=== PATIENT | male | born 1940 | race African-American/Black ===

== ENCOUNTER 2017-03-22 11:28 | Inpatient (IN) | payer MEDICARE, MEDICAID ==
[~2017-03-22] VITALS: Ht 172.7 cm; Wt 57.6 kg
[2017-03-22 11:30] VITALS: BP 186/86
[2017-03-22] MEDS ORDERED: ATORVASTATIN CA20 MG ORAL (11:45)
[2017-03-22] MEDS ORDERED: HYDRALAZINE HC100 MG ORAL (11:45)
[2017-03-22] MEDS ORDERED: CLONIDINE0.1 MG GT (11:45)
[2017-03-22] MEDS ORDERED: Morphine Sulfate 2mg/ml Inj IVP ONE (11:45)
[2017-03-22] MEDS ORDERED: ZOLPIDEM TARTRAT5 MG ORAL (11:45)
[2017-03-22] MEDS ORDERED: NORCO 5-325 TA1 EAC1 ORAL (11:45)
[2017-03-22] MEDS ORDERED: DOCUSATE SODIU250 MG ORAL (11:45)
[2017-03-22] MEDS ORDERED: ASPIRIN81 M3 PO (11:45)
[2017-03-22] MEDS ORDERED: ACETAMINOPHEN325 M1 ORAL (11:45)
[2017-03-22] MEDS ORDERED: DIOVAN80 MG ORAL (11:45)
[2017-03-22] MEDS ORDERED: DILTIAZEM HCL30 MG PO (11:45)
[2017-03-22] MEDS ORDERED: VITAMIN D250000 UNI1 ORAL (11:45)
[2017-03-22 12:00] LABS: BASOPHILS % (AUTO) 1.5 % (0.0-2.0); EOSINOPHILS % (AUTO) 3.3 % (0.0-3.0); LYMPHOCYTES % (AUTO) 27.7 % (20.0-45.0); MEAN CORPUSCULAR HEMOGLOBIN 28.3 PG (27.0-31.0); MEAN CORPUSCULAR HGB CONC 32.5 G/DL (32.0-36.0); MEAN CORPUSCULAR VOLUME 87 FL (80-99); MEAN PLATELET VOLUME 9.1 FL (6.5-10.1); NEUTROPHILS % (AUTO) 61.4 % (45.0-75.0); PLATELET COUNT 200 K/UL (150-450); RED BLOOD COUNT 4.93 M/UL (4.70-6.10); WHITE BLOOD COUNT 8.8 K/UL (4.8-10.8)
[2017-03-22] MEDS ORDERED: Tubing IV Cassette IV ONE (12:02)
[2017-03-22 12:18] LABS: ALANINE AMINOTRANSFERASE 9 U/L (3-41); ALBUMIN/GLOBULIN RATIO 1.2 (1.0-2.7); ANION GAP 18 (5-15); ASPARTATE AMINO TRANSFERASE 20 U/L (5-40); CALCIUM 9.1 mg/dL (8.6-10.2); CARBON DIOXIDE 23 mEQ/L (20-30); CHLORIDE 100 mEQ/L (98-107); CREATININE 1.4 mg/dL (0.7-1.2); HEMOLYSIS 6; POTASSIUM 3.5 mEQ/L (3.4-4.9); SODIUM 141 mEQ/L (135-145); TOTAL PROTEIN 7.7 g/dL (6.6-8.7)
[2017-03-22 12:38] LABS: TROPONIN I < 0.30 ng/mL (<=0.30)
[2017-03-22 12:47] LABS: CKMB 2.8 ng/mL (< 6.7)
--- NOTE | 2017-03-22 13:42 | Emergency Room Report ---
History of Present Illness General Chief Complaint: Chest Pain Source: Medical Record Present Illness HPI 76-year-old M presents to ED any of chest pain. States chest pain started approximately 2 hours ago while he was exercising at the [facility]. Patient states pain was sharp, 7/10, left-sided radiating on the left arm. Patient was given nitroglycerin x3 with aspirin without relief. Patient denies shortness of breath. Denies fevers or chills. History of pacemaker. No other aggravating relieving factors. Denies any other associated symptoms Allergies: Coded Allergies: No Known Allergies (Unverified , 03/22/17) Patient History Past Medical History: HTN Past Surgical History: none Pertinent Family History: none Social History: Denies: alcohol use, drug use, smoking Immunizations: UTD Reviewed Nursing Documentation: PMH: Agreed, PSxH: Agreed Nursing Documentation-PMH Hx Hypertension: Yes Review of Systems All Other Systems: negative except mentioned in HPI Physical Exam Vital Signs Date Time Temp Pulse Resp B/P Pulse Ox O2 Delivery O2 Flow Rate FiO2 03/22/17 11:17 82 18 212/110 99 Room Air 03/22/17 11:45 97.6 Sp02 EP Interpretation: reviewed, normal General Appearance: no apparent distress, alert, GCS 15, non-toxic Head: normocephalic, atraumatic Eyes: bilateral eye PERRL, bilateral eye normal inspection ENT: hearing grossly normal, normal pharynx, no angioedema, normal voice Neck: full range of motion, supple/symm/no masses Respiratory: chest non-tender, lungs clear, normal breath sounds, speaking full sentences Cardiovascular #1: regular rate, rhythm, no edema Cardiovascular #2: 2+ carotid (R), 2+ carotid (L), 2+ radial (R), 2+ radial (L) , 2+ dorsalis pedis (R), 2+ dorsalis pedis (L) Gastrointestinal: normal bowel sounds, non tender, soft, non-distended, no guarding, no rebound Rectal: deferred Genitourinary: normal inspection, no CVA tenderness Musculoskeletal: back normal, gait/station normal, normal range of motion, non- tender, calf tenderness Neurologic: alert, oriented x3, responsive, motor strength/tone normal, sensory intact, speech normal Psychiatric: judgement/insight normal, memory normal, mood/affect normal, no suicidal/homicidal ideation Reflexes: 3+ bicep (R), 3+ bicep (L), 3+ tricep (R), 3+ tricep (L), 3+ knee (R) , 3+ knee (L) Skin: normal color, no rash, warm/dry, well hydrated Lymphatic: no adenopathy Medical Decision Making Diagnostic Impression: Primary Impression: ACS (acute coronary syndrome) Additional Impression: Substance abuse ER Course Hospital Course 76-year-old male presents ED complaining of left-sided chest pain, unrelieved by NTG Differential diagnoses include: NV/unstable angina, contusion, muscle strain, PTX, rib fracture Clinical course Patient placed on stretcher. on electronic device monitor. After initial history and physical I ordered labs, EKG, chest x-ray, morphine labs reviewed- no leukocytosis, hb/hct stable, electrolytes ok, trop negative, Utox + multiple substances EKG - LVH, twave inversions in lateral leads, interpreted by me Chest x-ray- pacemaker, otherwise unremarkable Case discussed with Dr. Salinas and he agreed to accept the patient to his service for further care and support I. I feel this is a highly complex case requiring extensive working including EKG/Rhythm strip, Xray/CT/US, Blood/urine lab work, repeat exams while in ED, and administration of strong opiates/narcotics for pain control, admission to hospital or close patient follow up. dagnosis - ACS, substance abuse admitted to telemetry in serious condition Labs Test 03/22/17 11:30 03/22/17 12:15 White Blood Count 8.8 K/UL (4.8-10.8) Red Blood Count 4.93 M/UL (4.70-6.10) Hemoglobin 14.0 G/DL (14.2-18.0) Hematocrit 43.0 % (42.0-52.0) Mean Corpuscular Volume 87 FL (80-99) Mean Corpuscular Hemoglobin 28.3 PG (27.0-31.0) Mean Corpuscular Hemoglobin Concent 32.5 G/DL (32.0-36.0) Red Cell Distribution Width 12.0 % (11.6-14.8) Platelet Count 200 K/UL (150-450) Mean Platelet Volume 9.1 FL (6.5-10.1) Neutrophils (%) (Auto) 61.4 % (45.0-75.0) Lymphocytes (%) (Auto) 27.7 % (20.0-45.0) Monocytes (%) (Auto) 6.0 % (1.0-10.0) Eosinophils (%) (Auto) 3.3 % (0.0-3.0) Basophils (%) (Auto) 1.5 % (0.0-2.0) Sodium Level 141 mEQ/L (135-145) Potassium Level 3.5 mEQ/L (3.4-4.9) Chloride Level 100 mEQ/L (98-107) Carbon Dioxide Level 23 mEQ/L (20-30) Anion Gap 18 (5-15) Blood Urea Nitrogen 28 mg/dL (7-23) Creatinine 1.4 mg/dL (0.7-1.2) Estimat Glomerular Filtration Rate mL/min (>60) Glucose Level 165 mg/dL (74-106) Calcium Level 9.1 mg/dL (8.6-10.2) Total Bilirubin 0.3 mg/dL (0.0-1.2) Aspartate Amino Transf (AST/SGOT) 20 U/L (5-40) Alanine Aminotransferase (ALT/SGPT) 9 U/L (3-41) Alkaline Phosphatase 83 U/L (40-129) Total Creatine Kinase 91 U/L (38-174) Creatine Kinase MB 2.8 ng/mL (< 6.7) Creatine Kinase MB Relative Index 3.0 Troponin I < 0.30 ng/mL (<=0.30) Pro-B-Type Natriuretic Peptide 332 pg/mL (0-450) Total Protein 7.7 g/dL (6.6-8.7) Albumin 4.3 g/dL (3.5-5.2) Globulin 3.4 g/dL Albumin/Globulin Ratio 1.2 (1.0-2.7) Urine Opiates Screen Positive (NEGATIVE) Urine Barbiturates Screen Positive (NEGATIVE) Phencyclidine (PCP) Screen Negative (NEGATIVE) Urine Amphetamines Screen Negative (NEGATIVE) Urine Benzodiazepines Screen Negative (NEGATIVE) Urine Cocaine Screen Negative (NEGATIVE) Urine Marijuana (THC) Screen Positive (NEGATIVE) EKG Diagnostic Results Rate: normal Rhythm: NSR ST Segments: other - twave inversions in lateral leads ASA given to the pt in ED: No - given by ems Rhythm Strip Diag. Results EP Interpretation: yes Rhythm: NSR, no PVC's, no ectopy Chest X-Ray Diagnostic Results Chest X-Ray Ordered: Yes # of Views/Limited/Complete: 1 View Interpretation: no consolidation, no effusion, no pneumothorax, no acute cardiopulmonary disease, other - pacemaker Indication: Chest Pain Impression: No acute disease Date Electronically Signed: Mar 22, 2017 Time Electronically Signed: 14:16 Interpreting ER Physician: Jun Ahn MD Last Vital Signs Date Time Temp Pulse Resp B/P Pulse Ox O2 Delivery O2 Flow Rate FiO2 03/22/17 12:35 97.6 03/22/17 11:30 80 18 186/86 99 Room Air Status: improved Disposition: ADMITTED INPATIENT Condition: Serious Referrals: NON PHYSICIAN (PCP) JUN AHN M.D. Mar 22, 2017 13:42
[2017-03-22 14:00] VITALS: BP 200/78
--- NOTE | 2017-03-22 14:46 | Diagnostic Imaging Report ---
Indications: Chest pain Technique: Portable AP chest Findings: Comparison: None Cardiac silhouette mildly enlarged. Pulmonary vasculature within normal limits. Lungs and pleura are grossly clear. Thoracic aorta mildly calcified and elongated. Sternal wires. Left chest wall pacemaker. IMPRESSION: No evidence of acute cardiopulmonary disease Cardiomegaly with pacemaker, evidence of previous open heart surgery Aortosclerosis and probable chronic hypertensive change
[2017-03-22 16:00] VITALS: BP 168/77
[2017-03-22] MEDS ORDERED: Miralax 17gm pkt ORAL PRN (17:00)
[2017-03-22] MEDS ORDERED: DuoNeb 0.5-3(2.5)mg/3ml neb HHN PRN (17:00)
[2017-03-22] MEDS ORDERED: Nitroglycerin Subl 0.4mg tab (Bottle Of 25) SL PRN (17:00)
[2017-03-22] MEDS ORDERED: Diltiazem 25mg/5ml IV PRN (17:00)
[2017-03-22 18:00] VITALS: BP 150/58
[2017-03-22 18:24] LABS: TROPONIN I < 0.30 ng/mL (<=0.30)
[2017-03-22] MEDS: Ketorolac 30mg Inj IV PRN (18:26)
[2017-03-22 19:45] VITALS: BP 155/82
--- NOTE | 2017-03-22 20:26 | Cardiology Progress Note ---
Assessment/Plan Assessment/Plan The patient is seen and examined, full consult note is dictated. Objective Last 24 Hour Vital Signs Date Time Temp Pulse Resp B/P Pulse Ox O2 Delivery O2 Flow Rate FiO2 03/22/17 19:31 97.6 63 16 150/58 98 Room Air 03/22/17 19:00 97.6 03/22/17 18:00 63 16 150/58 98 Room Air 03/22/17 16:00 60 16 168/77 97 Room Air 03/22/17 15:04 175/79 03/22/17 15:02 62 175/79 03/22/17 14:00 60 15 200/78 97 Room Air 03/22/17 12:35 97.6 03/22/17 11:45 97.6 03/22/17 11:30 80 18 186/86 99 Room Air 03/22/17 11:30 82 18 Room Air 03/22/17 11:17 82 18 212/110 99 Room Air Laboratory Tests Test 03/22/17 11:30 03/22/17 12:15 03/22/17 17:50 White Blood Count 8.8 K/UL (4.8-10.8) Red Blood Count 4.93 M/UL (4.70-6.10) Hemoglobin 14.0 G/DL (14.2-18.0) L Hematocrit 43.0 % (42.0-52.0) Mean Corpuscular Volume 87 FL (80-99) Mean Corpuscular Hemoglobin 28.3 PG (27.0-31.0) Mean Corpuscular Hemoglobin Concent 32.5 G/DL (32.0-36.0) Red Cell Distribution Width 12.0 % (11.6-14.8) Platelet Count 200 K/UL (150-450) Mean Platelet Volume 9.1 FL (6.5-10.1) Neutrophils (%) (Auto) 61.4 % (45.0-75.0) Lymphocytes (%) (Auto) 27.7 % (20.0-45.0) Monocytes (%) (Auto) 6.0 % (1.0-10.0) Eosinophils (%) (Auto) 3.3 % (0.0-3.0) H Basophils (%) (Auto) 1.5 % (0.0-2.0) Sodium Level 141 mEQ/L (135-145) Potassium Level 3.5 mEQ/L (3.4-4.9) Chloride Level 100 mEQ/L (98-107) Carbon Dioxide Level 23 mEQ/L (20-30) Anion Gap 18 (5-15) H Blood Urea Nitrogen 28 mg/dL (7-23) H Creatinine 1.4 mg/dL (0.7-1.2) H Estimat Glomerular Filtration Rate mL/min (>60) Glucose Level 165 mg/dL (74-106) H Calcium Level 9.1 mg/dL (8.6-10.2) Total Bilirubin 0.3 mg/dL (0.0-1.2) Aspartate Amino Transf (AST/SGOT) 20 U/L (5-40) Alanine Aminotransferase (ALT/SGPT) 9 U/L (3-41) Alkaline Phosphatase 83 U/L (40-129) Total Creatine Kinase 91 U/L (38-174) Creatine Kinase MB 2.8 ng/mL (< 6.7) Creatine Kinase MB Relative Index 3.0 Troponin I < 0.30 ng/mL (<=0.30) < 0.30 ng/mL (<=0.30) Pro-B-Type Natriuretic Peptide 332 pg/mL (0-450) Total Protein 7.7 g/dL (6.6-8.7) Albumin 4.3 g/dL (3.5-5.2) Globulin 3.4 g/dL Albumin/Globulin Ratio 1.2 (1.0-2.7) Urine Opiates Screen Positive (NEGATIVE) H Urine Barbiturates Screen Positive (NEGATIVE) H Phencyclidine (PCP) Screen Negative (NEGATIVE) Urine Amphetamines Screen Negative (NEGATIVE) Urine Benzodiazepines Screen Negative (NEGATIVE) Urine Cocaine Screen Negative (NEGATIVE) Urine Marijuana (THC) Screen Positive (NEGATIVE) H LUIS SANTOS Mar 22, 2017 20:26
[2017-03-22] MEDS ORDERED: Triamterene/Hctz 37.5/25 cap ORAL SCH (20:45)
[2017-03-22] MEDS: Atorvastatin 20mg tab ORAL SCH (20:54)
[2017-03-22] MEDS: Morphine Sulfate 2mg/ml Inj IVP PRN (20:56)
[2017-03-22] MEDS: Heparin 5000 units/ml inj SUBQ SCH (20:56)
[2017-03-22] MEDS: Triamterene/Hctz 37.5/25 cap ORAL SCH (21:38)
--- NOTE | 2017-03-22 22:12 | History and Physical ---
History of Present Illness General Date patient seen: Mar 22, 2017 Reason for Hospitalization: Chest Pain Present Illness HPI 76-year-old male with hx of CAD, pacemaker, intermediate resident presents to ED with CC of chest pain. States chest pain started approximately 2 hours ago while he was exercising at the [facility] facility. The pain was sharp, 7/ 10, left-sided radiating on the left arm. Patient was given nitroglycerin x3 with aspirin without relief. Patient denies shortness of breath. Denies fevers or chills. No other aggravating relieving factors. His BP was elevated in ER, he is admitted to [facility] for further evaluation. Allergies: Coded Allergies: No Known Allergies (Unverified , 03/22/17) Medication History Scheduled Aspirin* (Aspirin*), 81 MG ORAL DAILY, (Reported) Atorvastatin Calcium* (Atorvastatin Calcium*), 20 MG ORAL BEDTIME, (Reported) Docusate Sodium* (Docusate Sodium*), 250 MG ORAL TWICE A DAY, (Reported) Ergocalciferol (Vitamin D2)* (Vitamin D*), 50,000 UNIT ORAL ONCE A WEEK, ( Reported) Hydralazine Hcl* (Hydralazine Hcl*), 100 MG ORAL EVERY 8 HOURS, (Reported) Valsartan (Diovan), 1 TAB ORAL BID, (Reported) [Diltiazem Hcl], 30 MG PO DAILY, (Reported) Scheduled PRN Clonidine Hcl (Clonidine Hcl), 0.1 MG PO EVERY 8 HOURS PRN for For High Blood Pressure, (Reported) Hydrocodone Bit/Acetaminophen 5-325* (Jber 5-325*), 1 TAB ORAL Q6H PRN for For Pain, (Reported) Zolpidem Tartrate* (Zolpidem Tartrate*), 5 MG ORAL BEDTIME PRN for Insomnia, ( Reported) [Acetaminophen*], 650 MG PO EVERY 4 HOURS PRN for For Pain, (Reported) Discontinued Medications Acetaminophen* (Acetaminophen 325MG Tablet*), 325 MG ORAL Q6H PRN for For Pain, (Reported) Discontinued Reason: Prescription changed Diltiazem Hcl (Diltiazem Hcl), 30 MG PO, (Reported) Discontinued Reason: Prescription changed Patient History Healthcare decision maker Resuscitation status Advanced Directive on File Past Medical/Surgical History Past Medical/Surgical History: (1) Pacemaker (2) senior living resident Review of Systems Cardiovascular: Reports: chest pain All Other Systems: negative except mentioned in HPI Physical Exam General Appearance: cachetic Lines, tubes and drains: peripheral HEENT: normocephalic, atraumatic Neck: non-tender, normal alignment Respiratory/Chest: chest wall non-tender, lungs clear Cardiovascular/Chest: normal peripheral pulses, normal rate Abdomen: normal bowel sounds, non tender Genitourinary/Rectal: normal genital exam Extremities: normal range of motion Last 24 Hour Vital Signs Date Time Temp Pulse Resp B/P Pulse Ox O2 Delivery O2 Flow Rate FiO2 03/22/17 21:38 67 159/93 03/22/17 21:38 159/93 03/22/17 19:31 97.6 63 16 150/58 98 Room Air 03/22/17 19:00 97.6 03/22/17 18:00 63 16 150/58 98 Room Air 03/22/17 16:00 60 16 168/77 97 Room Air 03/22/17 15:04 175/79 03/22/17 15:02 62 175/79 03/22/17 14:00 60 15 200/78 97 Room Air 03/22/17 12:35 97.6 03/22/17 11:45 97.6 03/22/17 11:30 80 18 186/86 99 Room Air 03/22/17 11:30 82 18 Room Air 03/22/17 11:17 82 18 212/110 99 Room Air Laboratory Tests Test 03/22/17 11:30 03/22/17 12:15 03/22/17 17:50 White Blood Count 8.8 K/UL (4.8-10.8) Red Blood Count 4.93 M/UL (4.70-6.10) Hemoglobin 14.0 G/DL (14.2-18.0) L Hematocrit 43.0 % (42.0-52.0) Mean Corpuscular Volume 87 FL (80-99) Mean Corpuscular Hemoglobin 28.3 PG (27.0-31.0) Mean Corpuscular Hemoglobin Concent 32.5 G/DL (32.0-36.0) Red Cell Distribution Width 12.0 % (11.6-14.8) Platelet Count 200 K/UL (150-450) Mean Platelet Volume 9.1 FL (6.5-10.1) Neutrophils (%) (Auto) 61.4 % (45.0-75.0) Lymphocytes (%) (Auto) 27.7 % (20.0-45.0) Monocytes (%) (Auto) 6.0 % (1.0-10.0) Eosinophils (%) (Auto) 3.3 % (0.0-3.0) H Basophils (%) (Auto) 1.5 % (0.0-2.0) Sodium Level 141 mEQ/L (135-145) Potassium Level 3.5 mEQ/L (3.4-4.9) Chloride Level 100 mEQ/L (98-107) Carbon Dioxide Level 23 mEQ/L (20-30) Anion Gap 18 (5-15) H Blood Urea Nitrogen 28 mg/dL (7-23) H Creatinine 1.4 mg/dL (0.7-1.2) H Estimat Glomerular Filtration Rate mL/min (>60) Glucose Level 165 mg/dL (74-106) H Calcium Level 9.1 mg/dL (8.6-10.2) Total Bilirubin 0.3 mg/dL (0.0-1.2) Aspartate Amino Transf (AST/SGOT) 20 U/L (5-40) Alanine Aminotransferase (ALT/SGPT) 9 U/L (3-41) Alkaline Phosphatase 83 U/L (40-129) Total Creatine Kinase 91 U/L (38-174) Creatine Kinase MB 2.8 ng/mL (< 6.7) Creatine Kinase MB Relative Index 3.0 Troponin I < 0.30 ng/mL (<=0.30) < 0.30 ng/mL (<=0.30) Pro-B-Type Natriuretic Peptide 332 pg/mL (0-450) Total Protein 7.7 g/dL (6.6-8.7) Albumin 4.3 g/dL (3.5-5.2) Globulin 3.4 g/dL Albumin/Globulin Ratio 1.2 (1.0-2.7) Urine Opiates Screen Positive (NEGATIVE) H Urine Barbiturates Screen Positive (NEGATIVE) H Phencyclidine (PCP) Screen Negative (NEGATIVE) Urine Amphetamines Screen Negative (NEGATIVE) Urine Benzodiazepines Screen Negative (NEGATIVE) Urine Cocaine Screen Negative (NEGATIVE) Urine Marijuana (THC) Screen Positive (NEGATIVE) H Height (Feet): 5 Height (Inches): 9.00 Weight (Pounds): 150 Medications Current Medications Medications (Trade) Dose Ordered Sig/Manjeet Route PRN Reason Start Time Stop Time Status Last Admin Dose Admin Acetaminophen (Tylenol) 650 mg Q4H PRN ORAL FEVER 03/22/17 17:00 04/21/17 16:59 Albuterol/ Ipratropium (DuoNeb 0.5-3(2.5)mg/3ml) 3 ml EVERY 4 HOURS PRN HHN Shortness of Breath 03/22/17 17:00 03/27/17 16:59 Aspirin (ASA) 162 mg DAILY ORAL 03/23/17 09:00 04/22/17 08:59 Atorvastatin Calcium (Lipitor) 20 mg BEDTIME ORAL 03/22/17 21:00 04/21/17 20:59 03/22/17 20:54 Clonidine HCl (Catapres) 0.1 mg EVERY 8 HOURS GT 03/22/17 15:00 04/21/17 14:59 03/22/17 21:38 Diltiazem HCl (Cardizem) 10 mg EVERY HOUR PRN IV heart rate more than 120, 03/22/17 17:00 04/21/17 16:59 Diltiazem HCl (Cardizem) 30 mg EVERY 8 HOURS ORAL 03/22/17 15:00 04/21/17 14:59 03/22/17 21:38 Enalaprilat (Vasotec) 2.5 mg EVERY 6 HOURS PRN IV sbp more than 160 03/22/17 17:00 04/21/17 16:59 Heparin Sodium (Porcine) (Heparin 5000 units/ml) 5,000 units EVERY 12 HOURS SUBQ 03/22/17 21:00 04/21/17 20:59 03/22/17 20:56 Ketorolac Tromethamine (Toradol 30mg) 30 mg Q6HR PRN IV moderate pain ( 4-6) 03/22/17 17:00 03/27/17 16:59 03/22/17 18:26 Morphine Sulfate (Morphine Sulfate) 2 mg EVERY 4 HOURS PRN IVP severe Pain (Pain Scale 7-10) 03/22/17 17:00 03/29/17 16:59 03/22/17 20:56 Nitroglycerin (Ntg) 0.4 mg Q5M PRN SL Prn Chest Pain 03/22/17 17:00 04/21/17 16:59 Ondansetron HCl (Zofran) 4 mg Q6H PRN IVP Nausea & Vomiting 03/22/17 17:00 04/21/17 16:59 Pantoprazole (Protonix) 40 mg DAILY ORAL 03/23/17 09:00 04/22/17 08:59 Polyethylene Glycol (Miralax) 17 gm DAILYPRN PRN ORAL Constipation 03/22/17 17:00 04/21/17 16:59 Temazepam (Restoril) 15 mg HSPRN PRN ORAL Insomnia 03/22/17 17:00 03/29/17 16:59 Triamterene/HCTZ (Dyazide) 1 cap DAILY ORAL 03/22/17 21:15 04/21/17 21:14 03/22/17 21:38 Assessment/Plan Problem List: (1) Costochondritis ICD Codes: M94.0 - Chondrocostal junction syndrome [Tietze] SNOMED: 23070809 (2) ACS (acute coronary syndrome) ICD Codes: I24.9 - Acute ischemic heart disease, unspecified SNOMED: 127144349 (3) Pacemaker ICD Codes: Z95.0 - Presence of cardiac pacemaker SNOMED: 364547619, 579240860 (4) Substance abuse ICD Codes: F19.10 - Other psychoactive substance abuse, uncomplicated SNOMED: 88837967 (5) senior living resident ICD Codes: Z59.3 - Problems related to living in residential institution SNOMED: 461358437 Assessment/Plan serial ekg, troponin cardio evaluation symptomatic treatment monitor bp renal w/u dvt prophylaxis echocardiogram pt/ot SEKOU HERNANDEZ Mar 22, 2017 22:12
[2017-03-22] MEDS ORDERED: NORCO 5-325 TA1 EACH ORAL (22:24)
[2017-03-22] MEDS ORDERED: DIOVAN HCT 80MG1 TAB ORAL (22:24)
[2017-03-22] MEDS ORDERED: ASPIRIN81 MG ORAL (22:24)
[2017-03-22] MEDS ORDERED: Diltiazem Hcl PO (22:24)
[2017-03-22] MEDS ORDERED: Acetaminophen PO (22:24)
[2017-03-22] MEDS ORDERED: CLONIDINE HCL0.1 MG PO (22:24)
--- NOTE | 2017-03-22 23:00 | Consultation ---
DATE OF CONSULTATION: 03/22/2017 CARDIOLOGY CONSULTATION REFERRING PHYSICIAN: Radha Salinas M.D. REASON FOR CONSULTATION: Management of chest pain. HISTORY OF PRESENT ILLNESS: The patient is a very unfortunate 76-year-old black gentleman who is transferred from residential [facility] for evaluation of chest pain. Apparently, the patient's chest pain occurred when he was exercising at residential facility. The pain is sharp, extremely reproducible and tender at the site of the previously implanted pacemaker, intensity is 10/10 and nonradiating, and took three doses of nitroglycerin with no relief. The patient denies any associated shortness of breath, nausea vomiting, or diaphoresis. PAST MEDICAL HISTORY: Hypertension, sick sinus syndrome, status post permanent pacemaker implantation. PAST SURGICAL HISTORY: Dual chamber pacemaker implantation. MEDICATIONS: List of medication in the nursing facility includes aspirin 81 mg p.o. daily, acetaminophen 325 mg q.6 h. p.r.n., atorvastatin 10 mg p.o. at bedtime, clonidine 0.1 mg G-tube daily, diltiazem 30 mg p.o. daily, Colace 250 mg twice daily, vitamin D5 50,000 once a week, hydralazine 100 mg p.o. q.8 h., [place] 5/325 mg one tablet q.4 h. p.r.n. pain, Diovan 80 mg p.o. daily, and zolpidem 5 mg p.o. at bedtime. SOCIAL HISTORY: Denies any tobacco, alcohol, or illicit drug use besides marijuana. FAMILY HISTORY: No premature coronary artery disease in first-degree relatives. REVIEW OF SYSTEMS: HEENT: Denies any headache, diplopia, or blurred vision. Constitutional: Denies any fever, chills, night sweats, or weight loss. Cardiovascular: Chest pain as mentioned above. No shortness of breath. No PND, orthopnea, or leg swelling. Pulmonary: Denies any cough or hemoptysis. Gastrointestinal: Denies any nausea, vomiting, diarrhea, constipation, abdominal pain, or GI bleed. Genitourinary: Denies any hematuria, dysuria, or incontinence. Neurology: Denies any motor dysfunction, sensory deficit, or altered speech. PHYSICAL EXAMINATION: GENERAL: The patient is a very unfortunate 76-year-old gentleman, who presented to this with complaints of chest pain, in no apparent respiratory distress except the fact that he is agonized due to left-sided chest pain. VITAL SIGNS: Blood pressure was 212/100 mm Hg, respirations 18, pulse of 82, O2 saturation 99% on room air, and temperature 97.6 degrees Fahrenheit. HEENT: Atraumatic and normocephalic. Anicteric. Pupils are equal, round, and reactive to light and accommodation. Extraocular muscles intact. NECK: JVP less than 5 centimeter. No carotid bruits. Carotid upstrokes 2+ bilaterally. CARDIOVASCULAR: Normal S1 and S2. Regular rate and rhythm. No murmurs, gallops, or rubs. There is exquisite tenderness over the pacemaker pocket. LUNGS: Clear to auscultation bilaterally. ABDOMEN: Soft, nontender, and nondistended. No hepatosplenomegaly. Positive bowel sounds. EXTREMITIES: No evidence of edema, clubbing, or cyanosis. LABORATORY AND DIAGNOSTIC DATA: Urine toxicology screen shows positive opiates, barbiturates and marijuana. Chemistry shows sodium 141, potassium is 3.5, chloride 100, bicarbonate 23, BUN of 28. Creatinine 1.4, and glucose is 165. Calcium is 9.1. Troponin I x2 negative. ProBNP was 332. WBC is 8.8, hemoglobin 14.0, hematocrit 43.0 and platelet count is 200,000. Chest x-ray showed no evidence of acute cardiopulmonary disease, cardiomegaly with dual chamber pacemaker and previous mediastinotomy. ASSESSMENT AND PLAN: The patient is a very pleasant 76-year-old gentleman, who presents to the hospital for further evaluation and management of chest pain. Cardiology consultation was made at request Dr. Salinas. 1. Accelerated hypertension with blood systolic blood pressure of 212 mm Hg. The patient was on blood pressure medication in the nursing facility. We will continue the same regimen. At this time, blood pressure is elevated at 150/58. The patient will benefit a combination of diuretic and calcium channel-blockers. A 2D echocardiography will be done to assess left ventricular systolic and diastolic function. 2. Noncardiac chest pain. The patient has exquisite tenderness over the chest pacemaker and no further cardiac intervention is necessary. The patient will require nonsteroidal anti-inflammatory therapy for pain management. 3. Chronic kidney disease, most likely hypertensive. Creatinine 1.4. 4. Polysubstance abuse including marijuana use. I would like to thank, Dr. Salinas, for allowing me to participate in the care of this patient. Deshawn Arshad M.D. DR: MISTY JOB#: [id number] CC:
[2017-03-22 23:57] VITALS: BP 143/76
[2017-03-23] MEDS: Morphine Sulfate 2mg/ml Inj IVP PRN ×4 (00:58→20:04)
[2017-03-23 04:00] VITALS: BP 139/74
[2017-03-23 07:50] VITALS: BP 178/89
[2017-03-23 08:07] LABS: BASOPHILS % (AUTO) 1.2 % (0.0-2.0); EOSINOPHILS % (AUTO) 3.7 % (0.0-3.0); LYMPHOCYTES % (AUTO) 29.1 % (20.0-45.0); MEAN CORPUSCULAR HEMOGLOBIN 28.6 PG (27.0-31.0); MEAN CORPUSCULAR HGB CONC 32.6 G/DL (32.0-36.0); MEAN CORPUSCULAR VOLUME 88 FL (80-99); MEAN PLATELET VOLUME 9.1 FL (6.5-10.1); MONOCYTES % (AUTO) 7.5 % (1.0-10.0); NEUTROPHILS % (AUTO) 58.6 % (45.0-75.0); PLATELET COUNT 191 K/UL (150-450); RED BLOOD COUNT 4.58 M/UL (4.70-6.10); RED CELL DISTRIBUTION WIDTH 11.9 % (11.6-14.8); WHITE BLOOD COUNT 7.3 K/UL (4.8-10.8)
[2017-03-23 08:15] LABS: PROTHROMBIN TIME 10.4 SEC (9.30-11.50)
[2017-03-23] MEDS: Enalaprilat 2.5mg/2ml Inj IV PRN (08:16)
[2017-03-23] MEDS: Heparin 5000 units/ml inj SUBQ SCH ×2 (08:19→21:28)
[2017-03-23 08:22] LABS: TROPONIN I < 0.30 ng/mL (<=0.30)
[2017-03-23 08:24] LABS: CHOLESTEROL 134 mg/dL (< 200); CHOLESTEROL/HDL RATIO 3.1 (3.3-4.4); CRP QUANT < 0.3 mg/dL (< 0.5); HEMOLYSIS 6; LDL CHOLESTEROL (CALC.) 74 mg/dL (60-99)
[2017-03-23] MEDS: Triamterene/Hctz 37.5/25 cap ORAL SCH (08:34)
[2017-03-23] MEDS: Ketorolac 30mg Inj IV PRN (08:47)
[2017-03-23] MEDS ORDERED: Aspirin Baby 81mg ORAL SCH (09:00)
[2017-03-23 11:23] VITALS: BP 157/86
--- NOTE | 2017-03-23 12:37 | Pulmonology Progress Note ---
Assessment/Plan Problems: (1) Costochondritis (2) ACS (acute coronary syndrome) (3) Pacemaker (4) Substance abuse (5) senior care resident Assessment/Plan add indocin renal w/u pending check echo cardio consult appreciated monitor bp dvt prophylaxi Renal us Subjective Interval Events: still c/o chest pain Allergies: Coded Allergies: No Known Allergies (Unverified , 03/22/17) Objective Last 24 Hour Vital Signs Date Time Temp Pulse Resp B/P Pulse Ox O2 Delivery O2 Flow Rate FiO2 03/23/17 11:23 98.4 74 20 157/86 97 Room Air 03/23/17 08:16 178/89 03/23/17 08:00 62 03/23/17 07:50 98.2 60 20 178/89 96 Room Air 03/23/17 06:20 154/94 03/23/17 06:20 63 154/94 03/23/17 04:00 60 03/23/17 04:00 98.1 61 18 139/74 94 Room Air 03/23/17 00:00 65 03/22/17 23:57 98.2 61 18 143/76 95 Room Air 03/22/17 21:38 67 159/93 03/22/17 21:38 159/93 03/22/17 20:00 60 03/22/17 19:45 98.0 63 18 155/82 96 Room Air 03/22/17 19:31 97.6 63 16 150/58 98 Room Air 03/22/17 19:00 97.6 03/22/17 18:00 63 16 150/58 98 Room Air 03/22/17 16:00 60 16 168/77 97 Room Air 03/22/17 15:04 175/79 03/22/17 15:02 62 175/79 03/22/17 14:00 60 15 200/78 97 Room Air Intake and Output 03/22/17 03/23/17 19:00 07:00 Intake Total 500 ml 240 ml Balance 500 ml 240 ml Intake Oral 0 ml 240 ml IV Total 500 ml # Voids 2 General Appearance: cachetic HEENT: normocephalic, atraumatic Respiratory/Chest: chest wall non-tender, lungs clear Cardiovascular: normal peripheral pulses, normal rate Abdomen: normal bowel sounds, soft, non tender Neurologic/Psychiatric: graffiti cleaner II-XII grossly normal, no motor/sensory deficits Lymphatic: no neck adenopathy Laboratory Tests 03/22/17 17:50: Troponin I < 0.30 03/23/17 07:30: Troponin I < 0.30, White Blood Count 7.3, Red Blood Count 4.58L, Hemoglobin 13.1L, Hematocrit 40.1L, Mean Corpuscular Volume 88, Mean Corpuscular Hemoglobin 28.6, Mean Corpuscular Hemoglobin Concent 32.6, Red Cell Distribution Width 11.9, Platelet Count 191, Mean Platelet Volume 9.1, Neutrophils (%) (Auto) 58.6, Lymphocytes (%) (Auto) 29.1, Monocytes (%) (Auto) 7.5, Eosinophils (%) (Auto) 3.7H, Basophils (%) (Auto) 1.2, Prothrombin Time 10.4, Prothromb Time International Ratio 1.0, Activated Partial Thromboplast Time 29, Urine Osmolality [Pending], Sodium Level [Pending], Potassium Level [ Pending], Chloride Level [Pending], Carbon Dioxide Level [Pending], Blood Urea Nitrogen [Pending], Creatinine [Pending], Estimat Glomerular Filtration Rate [ Pending], Glucose Level [Pending], Plasma/Serum Osmolality [Pending], Uric Acid [Pending], Calcium Level [Pending], Phosphorus Level [Pending], Magnesium Level [Pending], Total Bilirubin [Pending], Aspartate Amino Transf (AST/SGOT) [Pending ], Alanine Aminotransferase (ALT/SGPT) [Pending], Alkaline Phosphatase [Pending] , Total Creatine Kinase [Pending], C-Reactive Protein, Quantitative < 0.3, Total Protein [Pending], Albumin [Pending], Globulin [Pending], Triglycerides Level 86, Cholesterol Level 134, LDL Cholesterol 74, HDL Cholesterol 43, Cholesterol/HDL Ratio 3.1L, Thyroid Stimulating Hormone (TSH) 1.260, Free Thyroxine [Pending], Free Triiodothyronine [Pending], Cortisol [Pending] Current Medications Medications (Trade) Dose Ordered Sig/Manjeet Route PRN Reason Start Time Stop Time Status Last Admin Dose Admin Acetaminophen (Tylenol) 650 mg Q4H PRN ORAL FEVER 03/22/17 17:00 04/21/17 16:59 Albuterol/ Ipratropium (DuoNeb 0.5-3(2.5)mg/3ml) 3 ml EVERY 4 HOURS PRN HHN Shortness of Breath 03/22/17 17:00 03/27/17 16:59 Aspirin (ASA) 162 mg DAILY ORAL 03/23/17 09:00 04/22/17 08:59 03/23/17 08:15 Atorvastatin Calcium (Lipitor) 20 mg BEDTIME ORAL 03/22/17 21:00 04/21/17 20:59 03/22/17 20:54 Clonidine HCl (Catapres) 0.1 mg EVERY 8 HOURS ORAL 03/23/17 06:00 04/22/17 05:59 03/23/17 06:20 Diltiazem HCl (Cardizem) 10 mg EVERY HOUR PRN IV heart rate more than 120, 03/22/17 17:00 04/21/17 16:59 Diltiazem HCl (Cardizem) 30 mg EVERY 8 HOURS ORAL 03/22/17 15:00 04/21/17 14:59 03/23/17 06:20 Enalaprilat (Vasotec) 2.5 mg EVERY 6 HOURS PRN IV sbp more than 160 03/22/17 17:00 04/21/17 16:59 03/23/17 08:16 Heparin Sodium (Porcine) (Heparin 5000 units/ml) 5,000 units EVERY 12 HOURS SUBQ 03/22/17 21:00 04/21/17 20:59 03/23/17 08:19 Ketorolac Tromethamine (Toradol 30mg) 30 mg Q6HR PRN IV moderate pain ( 4-6) 03/22/17 17:00 03/27/17 16:59 03/23/17 08:47 Morphine Sulfate (Morphine Sulfate) 2 mg EVERY 4 HOURS PRN IVP severe Pain (Pain Scale 7-10) 03/22/17 17:00 03/29/17 16:59 03/23/17 11:01 Nitroglycerin (Ntg) 0.4 mg Q5M PRN SL Prn Chest Pain 03/22/17 17:00 04/21/17 16:59 Ondansetron HCl (Zofran) 4 mg Q6H PRN IVP Nausea & Vomiting 03/22/17 17:00 04/21/17 16:59 Pantoprazole (Protonix) 40 mg DAILY ORAL 03/23/17 09:00 04/22/17 08:59 03/23/17 08:15 Polyethylene Glycol (Miralax) 17 gm DAILYPRN PRN ORAL Constipation 03/22/17 17:00 04/21/17 16:59 Temazepam (Restoril) 15 mg HSPRN PRN ORAL Insomnia 03/22/17 17:00 03/29/17 16:59 Triamterene/HCTZ (Dyazide) 1 cap DAILY ORAL 03/22/17 21:15 04/21/17 21:14 03/23/17 08:34 SEKOU HERNANDEZ Mar 23, 2017 12:37
[2017-03-23 12:42] LABS: ALANINE AMINOTRANSFERASE 8 U/L (3-41); ALBUMIN/GLOBULIN RATIO 1.3 (1.0-2.7); ANION GAP 17 (5-15); ASPARTATE AMINO TRANSFERASE 18 U/L (5-40); CALCIUM 8.5 mg/dL (8.6-10.2); CARBON DIOXIDE 21 mEQ/L (20-30); CHLORIDE 102 mEQ/L (98-107); CREATININE 1.5 mg/dL (0.7-1.2); HEMOLYSIS 4; MAGNESIUM 1.9 mg/dL (1.7-2.5); PHOSPHORUS 3.3 mg/dL (2.5-4.8); POTASSIUM 4.2 mEQ/L (3.4-4.9); SODIUM 140 mEQ/L (135-145); TOTAL PROTEIN 6.7 g/dL (6.6-8.7); URIC ACID 7.4 mg/dL (3.0-7.5)
[2017-03-23 13:43] LABS: APPEARANCE,URINE CLEAR; KETONES,URINE NEGATIVE (NEGATIVE); LEUKOCYTE ESTERASE ,URINE 1+ (NEGATIVE); NITRITE,URINE NEGATIVE (NEGATIVE); PH,URINE 6 (4.5-8.0); PROTEIN,URINE NEGATIVE (NEGATIVE); UROBILINOGEN,URINE NORMAL MG/DL (0.0-1.0)
--- NOTE | 2017-03-23 13:47 | Consultation ---
Consult Note Consult Note Cardiac EP full note dictated #[id number] ARTURO DUPREE Mar 23, 2017 13:47
[2017-03-23 13:53] LABS: BACTERIA,URINE OCCASIONAL /HPF; RBC,URINE 0-2 /HPF (0 - 0); SQUAMOUS EPITHELIAL CELL,UR OCCASIONAL /LPF (NONE/OCC)
[2017-03-23] MEDS: Indomethacin 75 MG CAPSULE.ER ORAL SCH ×2 (14:00→22:10)
--- NOTE | 2017-03-23 14:13 | Neurology Progress Note ---
Objective Physical Exam Last Vital Signs Date Time Temp Pulse Resp B/P Pulse Ox O2 Delivery O2 Flow Rate FiO2 03/23/17 13:59 157/86 03/23/17 13:59 63 03/23/17 11:23 98.4 20 97 Room Air Laboratory Tests Test 03/22/17 17:50 03/23/17 07:30 03/23/17 13:05 Troponin I < 0.30 ng/mL (<=0.30) < 0.30 ng/mL (<=0.30) White Blood Count 7.3 K/UL (4.8-10.8) Red Blood Count 4.58 M/UL (4.70-6.10) L Hemoglobin 13.1 G/DL (14.2-18.0) L Hematocrit 40.1 % (42.0-52.0) L Mean Corpuscular Volume 88 FL (80-99) Mean Corpuscular Hemoglobin 28.6 PG (27.0-31.0) Mean Corpuscular Hemoglobin Concent 32.6 G/DL (32.0-36.0) Red Cell Distribution Width 11.9 % (11.6-14.8) Platelet Count 191 K/UL (150-450) Mean Platelet Volume 9.1 FL (6.5-10.1) Neutrophils (%) (Auto) 58.6 % (45.0-75.0) Lymphocytes (%) (Auto) 29.1 % (20.0-45.0) Monocytes (%) (Auto) 7.5 % (1.0-10.0) Eosinophils (%) (Auto) 3.7 % (0.0-3.0) H Basophils (%) (Auto) 1.2 % (0.0-2.0) Prothrombin Time 10.4 SEC (9.30-11.50) Prothromb Time International Ratio 1.0 (0.9-1.1) Activated Partial Thromboplast Time 29 SEC (23-33) Sodium Level 140 mEQ/L (135-145) Potassium Level 4.2 mEQ/L (3.4-4.9) Chloride Level 102 mEQ/L (98-107) Carbon Dioxide Level 21 mEQ/L (20-30) Anion Gap 17 (5-15) H Blood Urea Nitrogen 28 mg/dL (7-23) H Creatinine 1.5 mg/dL (0.7-1.2) H Estimat Glomerular Filtration Rate mL/min (>60) Glucose Level 100 mg/dL (74-106) Plasma/Serum Osmolality Pending Uric Acid 7.4 mg/dL (3.0-7.5) Calcium Level 8.5 mg/dL (8.6-10.2) L Phosphorus Level 3.3 mg/dL (2.5-4.8) Magnesium Level 1.9 mg/dL (1.7-2.5) Total Bilirubin 0.4 mg/dL (0.0-1.2) Aspartate Amino Transf (AST/SGOT) 18 U/L (5-40) Alanine Aminotransferase (ALT/SGPT) 8 U/L (3-41) Alkaline Phosphatase 67 U/L (40-129) Total Creatine Kinase 76 U/L (38-174) C-Reactive Protein, Quantitative < 0.3 mg/dL (< 0.5) Total Protein 6.7 g/dL (6.6-8.7) Albumin 3.8 g/dL (3.5-5.2) Globulin 2.9 g/dL Albumin/Globulin Ratio 1.3 (1.0-2.7) Triglycerides Level 86 mg/dL (< 150) Cholesterol Level 134 mg/dL (< 200) LDL Cholesterol 74 mg/dL (60-99) HDL Cholesterol 43 mg/dL (> 60) Cholesterol/HDL Ratio 3.1 (3.3-4.4) L Thyroid Stimulating Hormone (TSH) 1.260 uIU/mL (0.300-4.500) Free Thyroxine 1.44 ng/dL (0.86-1.85) Free Triiodothyronine Pending Cortisol Pending Urine Color Yellow Urine Appearance Clear Urine pH 6 (4.5-8.0) Urine Specific [place] 1.010 (1.005-1.035) Urine Protein Negative (NEGATIVE) Urine Glucose (UA) Negative (NEGATIVE) Urine Ketones Negative (NEGATIVE) Urine Occult Blood Negative (NEGATIVE) Urine Nitrite Negative (NEGATIVE) Urine Bilirubin Negative (NEGATIVE) Urine Urobilinogen Normal MG/DL (0.0-1.0) Urine Leukocyte Esterase 1+ (NEGATIVE) H Urine RBC 0-2 /HPF (0 - 0) H Urine WBC 2-4 /HPF (0 - 0) Urine Squamous Epithelial Cells Occasional /LPF Urine Bacteria Occasional /HPF (NONE) Urine Eosinophils Pending Urine Osmolality Pending Urine Random Sodium 136 mmol/L Urine Random Chloride 102 mmol/L Urine Potassium Timed 51 mmol/L Impression/Recommendations Problems: (1) L chest contusion with mild L brachial plexopathy (2) Pacemaker (3) Substance abuse Status: unchanged Recommendations #[id number] MELISSA ELLIS Mar 23, 2017 14:13
--- NOTE | 2017-03-23 14:36 | Cardiology Report ---
APPROVED REPORT EXAM: Two-dimensional and M-mode echocardiogram with Doppler and color Doppler. INDICATION LV function M-Mode DIMENSIONS IVSd1.4 (0.7-1.1cm)Left Atrium (MM)3.5 (1.6-4.0cm) LVDd4.4 (3.5-5.6cm)Aortic Root3.4 (2.0-3.7cm) PWd1.0 (0.7-1.1cm)Aortic Cusp Exc.1.6 (1.5-2.0cm) LVDs2.7 (2.5-4.0cm) PWs1.5 cm Normal left ventricular chamber size, systolic function and wall motion. Left ventricular ejection fraction estimated to be 65 %. Mild to moderate left ventricular hypertrophy. No evidence of pericardial effusion. All other cardiac chamber sizes are within normal limits. Focal aortic valve sclerosis with adequate cusp excursion. Thickened mitral valve leaflets with normal excursion. Mitral annulus and aortic root calcification. Pulmonic valve not well visualized. Normal tricuspid valve structure. IVC at normal size with physiologic collapse. A color flow and spectral Doppler study was performed and revealed: Mild aortic regurgitation. Mild mitral regurgitation. Mitral diastolic velocities suggest reduced left ventricular relaxation c/w mild LV diastolic dysfunction (Grade I ). Mild tricuspid regurgitation. Tricuspid systolic velocities suggests peak right ventricular systolic pressure of 31 mmHg.
--- NOTE | 2017-03-23 15:09 | Cardiology Report ---
APPROVED REPORT EKG Measurement Heart [id number] Left ventricular hypertrophy with repolarization abnormality Abnormal ECG Atrial Pacemaker
[2017-03-23 15:36] VITALS: BP 140/68
--- NOTE | 2017-03-23 16:01 | Consultation ---
Consult Note Consult Note 76-year-old male with hx of CAD, pacemaker, halfway resident presents to ED with CC of chest pain. States chest pain started approximately 2 hours ago while he [facility]. The pain was sharp, 7/ 10, left-sided radiating on the left arm. Patient was given nitroglycerin x3 with aspirin without relief. Patient denies shortness of breath. Denies fevers or chills. No other aggravating relieving factors. His BP was elevated in ER, he is admitted to [facility] for further evaluation. Past Medical History: HTN Cr 1.4 Interviewed, examined , data reviewed Assessment/Plan Renal failure-mainly pre renal (1) Costochondritis (2) ACS (acute coronary syndrome) (3) Pacemaker (4) Poly Substance abuse (5) jail resident Plan: Hydrate- Watch CHF Sx- Gastric support- Stop NSAIDs or minimize their use Per orders YOHANA OCONNOR Mar 23, 2017 16:01
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
[2017-03-23 20:00] VITALS: BP 154/92
--- NOTE | 2017-03-23 21:21 | Cardiology Progress Note ---
Assessment/Plan Assessment/Plan 1. Accelerated hypertension, increase cardizem dose, continue Dyazide and clonidine, 2D echocardiography shows hypertensive heart disease with normal LV systolic function. 2. Noncardiac chest pain. The patient has exquisite tenderness over the chest pacemaker, no further cardiac intervention is necessary, continue nonsteroidal anti-inflammatory therapy for pain management. No further cardiac testing required. 3. Chronic kidney disease, most likely hypertensive, creatinine at 1.5. 4. Polysubstance abuse including marijuana use. Subjective Subjective Sinus rhythm at 60. Objective Last 24 Hour Vital Signs Date Time Temp Pulse Resp B/P Pulse Ox O2 Delivery O2 Flow Rate FiO2 03/23/17 16:00 62 03/23/17 15:36 99.5 64 20 140/68 97 Room Air 03/23/17 13:59 157/86 03/23/17 13:59 63 157/86 03/23/17 12:00 63 03/23/17 11:23 98.4 74 20 157/86 97 Room Air 03/23/17 08:16 178/89 03/23/17 08:00 62 03/23/17 07:50 98.2 60 20 178/89 96 Room Air 03/23/17 06:20 154/94 03/23/17 06:20 63 154/94 03/23/17 04:00 60 03/23/17 04:00 98.1 61 18 139/74 94 Room Air 03/23/17 00:00 65 03/22/17 23:57 98.2 61 18 143/76 95 Room Air 03/22/17 21:38 67 159/93 03/22/17 21:38 159/93 Intake and Output 03/22/17 03/23/17 19:00 07:00 Intake Total 500 ml 240 ml Balance 500 ml 240 ml Intake Oral 0 ml 240 ml IV Total 500 ml # Voids 2 2D Echo: LVEF 65%, Mod LVH, Mild MR/AR, Grade I LVDD, RVSP 31 mmHg Laboratory Tests Test 03/23/17 07:30 03/23/17 13:05 White Blood Count 7.3 K/UL (4.8-10.8) Red Blood Count 4.58 M/UL (4.70-6.10) L Hemoglobin 13.1 G/DL (14.2-18.0) L Hematocrit 40.1 % (42.0-52.0) L Mean Corpuscular Volume 88 FL (80-99) Mean Corpuscular Hemoglobin 28.6 PG (27.0-31.0) Mean Corpuscular Hemoglobin Concent 32.6 G/DL (32.0-36.0) Red Cell Distribution Width 11.9 % (11.6-14.8) Platelet Count 191 K/UL (150-450) Mean Platelet Volume 9.1 FL (6.5-10.1) Neutrophils (%) (Auto) 58.6 % (45.0-75.0) Lymphocytes (%) (Auto) 29.1 % (20.0-45.0) Monocytes (%) (Auto) 7.5 % (1.0-10.0) Eosinophils (%) (Auto) 3.7 % (0.0-3.0) H Basophils (%) (Auto) 1.2 % (0.0-2.0) Prothrombin Time 10.4 SEC (9.30-11.50) Prothromb Time International Ratio 1.0 (0.9-1.1) Activated Partial Thromboplast Time 29 SEC (23-33) Sodium Level 140 mEQ/L (135-145) Potassium Level 4.2 mEQ/L (3.4-4.9) Chloride Level 102 mEQ/L (98-107) Carbon Dioxide Level 21 mEQ/L (20-30) Anion Gap 17 (5-15) H Blood Urea Nitrogen 28 mg/dL (7-23) H Creatinine 1.5 mg/dL (0.7-1.2) H Estimat Glomerular Filtration Rate mL/min (>60) Glucose Level 100 mg/dL (74-106) Plasma/Serum Osmolality Pending Uric Acid 7.4 mg/dL (3.0-7.5) Calcium Level 8.5 mg/dL (8.6-10.2) L Phosphorus Level 3.3 mg/dL (2.5-4.8) Magnesium Level 1.9 mg/dL (1.7-2.5) Total Bilirubin 0.4 mg/dL (0.0-1.2) Aspartate Amino Transf (AST/SGOT) 18 U/L (5-40) Alanine Aminotransferase (ALT/SGPT) 8 U/L (3-41) Alkaline Phosphatase 67 U/L (40-129) Total Creatine Kinase 76 U/L (38-174) Troponin I < 0.30 ng/mL (<=0.30) C-Reactive Protein, Quantitative < 0.3 mg/dL (< 0.5) Total Protein 6.7 g/dL (6.6-8.7) Albumin 3.8 g/dL (3.5-5.2) Globulin 2.9 g/dL Albumin/Globulin Ratio 1.3 (1.0-2.7) Triglycerides Level 86 mg/dL (< 150) Cholesterol Level 134 mg/dL (< 200) LDL Cholesterol 74 mg/dL (60-99) HDL Cholesterol 43 mg/dL (> 60) Cholesterol/HDL Ratio 3.1 (3.3-4.4) L Thyroid Stimulating Hormone (TSH) 1.260 uIU/mL (0.300-4.500) Free Thyroxine 1.44 ng/dL (0.86-1.85) Free Triiodothyronine Pending Cortisol Pending Urine Color Yellow Urine Appearance Clear Urine pH 6 (4.5-8.0) Urine Specific [place] 1.010 (1.005-1.035) Urine Protein Negative (NEGATIVE) Urine Glucose (UA) Negative (NEGATIVE) Urine Ketones Negative (NEGATIVE) Urine Occult Blood Negative (NEGATIVE) Urine Nitrite Negative (NEGATIVE) Urine Bilirubin Negative (NEGATIVE) Urine Urobilinogen Normal MG/DL (0.0-1.0) Urine Leukocyte Esterase 1+ (NEGATIVE) H Urine RBC 0-2 /HPF (0 - 0) H Urine WBC 2-4 /HPF (0 - 0) Urine Squamous Epithelial Cells Occasional /LPF Urine Bacteria Occasional /HPF (NONE) Urine Eosinophils None seen Urine Osmolality Pending Urine Random Sodium 136 mmol/L Urine Random Chloride 102 mmol/L Urine Potassium Timed 51 mmol/L Objective HEENT: Atraumatic and normocephalic. Anicteric. Pupils are equal, round, and reactive to light and accommodation. Extraocular muscles intact. NECK: JVP less than 5 centimeter. No carotid bruits. Carotid upstrokes 2+ bilaterally. CARDIOVASCULAR: Normal S1 and S2. Regular rate and rhythm. No murmurs, gallops, or rubs. There is exquisite tenderness over the pacemaker pocket. LUNGS: Clear to auscultation bilaterally. ABDOMEN: Soft, nontender, and nondistended. No hepatosplenomegaly. Positive bowel sounds. EXTREMITIES: No evidence of edema, clubbing, or cyanosis. LUIS SANTOS Mar 23, 2017 21:21
[2017-03-23] MEDS: Atorvastatin 20mg tab ORAL SCH (21:25)
--- NOTE | 2017-03-23 22:00 | Consultation ---
DATE OF CONSULTATION: CARDIAC ELECTROPHYSIOLOGY CONSULTATION REASON FOR CONSULT: Pacemaker evaluation, left arm pain and chest pain. HISTORY OF PRESENT ILLNESS: The patient is a 76-year-old man with a history of sick sinus syndrome status post dual-chamber pacemaker placement ([employer]). The full details of this are uncertain. He presented with complaints of left-sided chest pain over the pacemaker site and over the left arm. The pain is sharp and moderate to severe. Per the notes, he has been given nitroglycerin x3 as well as aspirin at the convalescent home where he resides without improvement in symptoms. He has no associated dyspnea, diaphoresis, nausea or vomiting. He was admitted for further treatment. PAST MEDICAL HISTORY: As noted above. Also, history of hypertension and hyperlipidemia. MEDICATIONS: Indocin 75 mg every hour, aspirin 162 mg daily, Protonix 40 mg daily, Dyazide 1 capsule daily, Lipitor 20 mg daily, subcutaneous heparin 5000 units every 12 hours, nitroglycerin sublingual p.r.n., Tylenol p.r.n., Toradol p.r.n., and morphine as needed. ALLERGIES: No known drug allergies. SOCIAL HISTORY: The patient has no history of tobacco, alcohol or drug abuse. PHYSICAL EXAMINATION: GENERAL: Alert, well-developed male, in no acute distress. VITAL SIGNS: Blood pressure is 157/86, pulse 74 and regular, respirations 20, and afebrile. HEENT: Normocephalic and atraumatic. Pupils are equal, round, and reactive to light. Sclerae anicteric. NECK: Supple. There is no jugular venous distention. No carotid bruits. CHEST: Healed surgical scar on the left and pacemaker generator palpable subcutaneously with moderate tenderness over this site and the adjacent shoulder. LUNGS: Clear to auscultation bilaterally. HEART: Regular S1 and S2. No murmurs, rubs, S3, or S4. ABDOMEN: Soft and nontender. No palpable mass. EXTREMITIES: There is tenderness over the left pacer pocket site and over the left shoulder and left arm as well as pain with movement. No peripheral edema. Pulses 2+ and symmetric. LABORATORY AND DIAGNOSTIC DATA: Hemoglobin 13, white blood count 7300, and platelets 191,000. Potassium 4.2, BUN 28, and creatinine 1.5. Troponin less than 0.3. EKG shows sinus rhythm, rate of 78 beats per minute, axis +60 degrees, left ventricular hypertrophy with inverted T-waves in the inferolateral leads consistent with repolarization. Chest x-ray shows cardiomegaly, dual-chamber pacemaker with leads entering from the left to the right atrium and right ventricle and clear lung marshall. ASSESSMENT AND RECOMMENDATIONS: The patient is a 76-year-old man with a history of sick sinus syndrome status post permanent dual-chamber pacemaker placement, who now presents with left chest and arm pain, which appears of musculoskeletal origin. There does not appear to be an infection at the site of the pocket, as there is no duration, erythema or edema over the pocket site. I would favor obtaining an ultrasound however to definitively rule out a fluid collection and we will also obtain a venous duplex of the arm to rule out DVT. If these are negative, then would pursue other musculoskeletal causes of his symptoms, question neuropathy or radiculopathy. I will arrange for pacemaker interrogation to assess the patient's pacemaker function. Do Martinez M.D. DR: CELESTINO JOB#: [id number] CC:
--- NOTE | 2017-03-23 23:30 | Consultation ---
DATE OF CONSULTATION: 03/23/2017 CONSULTING PHYSICIAN: Stephen Vasquez M.D. REQUESTING PHYSICIAN: Radha Salinas M.D. HISTORY OF PRESENT ILLNESS: The patient is a 76-year-old male, resident of [facility], seen in neurological consultation to evaluate intractable left upper extremity pain. The patient informed me that approximately five days ago while at the bathroom he had loss of consciousness, fell down, upon awakening he felt acute pain in the area of the left chest pacemaker, pain was initially localized but later he started developed pain and numbness in his left axillary region radiating along the left lower extremity, left upper extremity numbness predominantly down to second and third fingers with some stiffness and tenderness in the both fingers. He apparently had this during exercise the pain become severe 04/12, with this he was brought to this facility, initially he was given Nitro three pills with aspirin with no relief. There was no other associated symptoms. On arrival, his blood pressure was 212/110, heart rate of 82. The patient diagnosed with acute coronary syndrome with additional impression of having substance abuse. His initial diagnostic studies included CBC which was unremarkable. Coagulation panel was normal. Urinalysis 1+ leukocyte esterase, otherwise normal. His toxicology positive for opiates, barbiturates, and marijuana. Chemistry panel with elevated anion gap of 18, BUN 28 creatinine 1.4, blood sugar 165, otherwise normal examination including lipid panel and TSH. The patient arrived with medication list including aspirin, atorvastatin, clonidine, vitamin hydralazine, [place] 5 mg six hours as needed, valsartan, and zolpidem. The patient was placed on Vasotec, Indocin 75 mg every eight hours, Toradol IV, morphine sulfate as needed, Protonix, temazepam, Dyazide, Lipitor, and aspirin. PAST MEDICAL HISTORY: The patient has a history of pacemaker in place status post CABG, hypertension, diabetes type 2, history of severe low back pain using abdominal brace and confined to a wheelchair, persistent pain in his left knee, severe pain in his upper back and neck with scoliosis although his chest x-ray revealed cardiomegaly, pacemaker in place. ALLERGIES: None reported. SOCIAL HISTORY: Resident of nursing facility. Denies alcohol abuse. REVIEW OF SYSTEMS: Persistent pain in his left chest in area of the pacemaker, numbness in axillary area down to the left hand, severe pain to upper back and neck for several years, headaches, but no visual or hearing abnormalities. Currently no palpitations. No abdominal pain. No urine or bowel incontinence. PHYSICAL EXAMINATION: GENERAL: A well-developed, well-nourished man, not in acute distress, lying comfortably in bed. VITAL SIGNS: Now stable. Blood pressure 157/86, respiration 18. HEENT: Head is normocephalic. No evidence of trauma. Eyes, ears, and throat are clear. NECK: Neck is supple but limited range of motion due to pain in neck. Left anterior chest, pacemaker in place and was very tender and very painful to touch. Tenderness in the left axillary region. There is postoperative scarring with tenderness in the left knee, limited range of motion, left shoulder due to increasing pain in his upper back and neck. Peripheral pulses 1+ symmetric. MENTAL STATUS: Alert and oriented x3 with no evidence of aphasia or apraxia. Cognitive function normal. Emotionally labile. The patient is very sensitive during examination, actually reluctant to be checked for pinprick sensation stating have enough "pain" his suggestion that he needs some stronger medication for pain. CRANIAL NERVE II: Pupils both responding to light and accommodation. Extraocular movement intact. No nystagmus. CRANIAL NERVE V: Normal corneal responses. CRANIAL NERVE VII: No facial asymmetry. CRANIAL NERVE VIII: Slight decrease in hearing CRANIAL NERVE IX THROUGH XII: Tongue is in midline. Symmetric palate elevation. 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 Normal muscle tone. There is some stiffness of left second and third fingers with a limited flexion with palpable tenderness in joints of both fingers. Deep tendon reflexes depressed bilaterally. Plantar response is mute. Sensory exam withdrawing to pin stimulation, both arms symmetrically. Gait not tested. The patient indicated he has ambulation due to pain in his back as well as in his left knee so he is using walker or wheelchair. IMPRESSION: 1. HISTORY OF RECURRENT SYNCOPAL EPISODE: 2. Status post fall with injury to the left anterior chest as well as with symptoms suggesting crush injury to left brachial plexus. 3. 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 4. Chronic pain syndrome, opiate dependent. 5. Hypertension. 6. Coronary disease status post coronary artery bypass graft, pacemaker. RECOMMENDATION: 1. Ultrasound left upper chest area of pacemaker to rule out compartmental syndrome. 2. X-ray of the left shoulder. 3. X-ray of left hand. 4. Continue with nonsteroidal anti-inflammatory agents, [place] as needed breakthrough pain before physical therapy applied to left upper extremity. 5. Neurontin 100 mg three times a to be titrated as necessary. Thank you for allowing me to see this interesting patient in neurological consultation. Stephen Darian Vasquez DR: Armida JOB#: [id number] CC:
[2017-03-24] VITALS: BP 151/73
[2017-03-24] MEDS: Morphine Sulfate 2mg/ml Inj IVP PRN ×5 (01:54→20:42)
[2017-03-24 05:30] VITALS: BP 191/87
[2017-03-24] MEDS: Indomethacin 75 MG CAPSULE.ER ORAL SCH (05:47)
[2017-03-24] MEDS: Enalaprilat 2.5mg/2ml Inj IV PRN (06:52)
[2017-03-24] MEDS ORDERED: Nitroglycerin Subl 0.4mg tab (Bottle Of 25) SL PRN (07:15)
[2017-03-24 08:00] VITALS: BP 142/80
[2017-03-24] MEDS ORDERED: DuoNeb 0.5-3(2.5)mg/3ml neb HHN PRN (08:00)
[2017-03-24 08:04] LABS: TROPONIN I < 0.30 ng/mL (<=0.30)
[2017-03-24] MEDS: Triamterene/Hctz 37.5/25 cap ORAL SCH (09:18)
[2017-03-24] MEDS: Aspirin Baby 81mg ORAL SCH (09:20)
[2017-03-24] MEDS: Heparin 5000 units/ml inj SUBQ SCH ×2 (09:23→20:41)
--- NOTE | 2017-03-24 11:05 | Diagnostic Imaging Report ---
Indication: Abnormal renal function tests Technique: Grayscale and duplex images of the kidneys, retroperitoneum, and bladder were obtained. Comparison:None Findings: Right kidney measures 8.1 cm in length. Left kidney measures 9.1 cm in length. Both kidneys demonstrate slightly increased echogenicity. No hydronephrosis. Left kidney demonstrates a 2.1 cm cyst.. Normal inferior vena cava. Bladder is normal. Prostate is prominent, calculated volume 67 mL Impression: Negative for hydronephrosis Mildly increased renal echogenicity, may indicate early medical renal disease Prominent prostate, 67 mL .
[2017-03-24 12:00] VITALS: BP 169/90
--- NOTE | 2017-03-24 12:55 | Diagnostic Imaging Report ---
Indication: PAIN Technique: 3 views of the cervical spine Comparison: none Findings: . Slight anterior offset of C2 on C3, with slight reversal of the normal cervical lordosis at that level. Otherwise normal bony alignment. No acute fractures. No dislocations. There is degenerative disc narrowing at C3-4, C4-5, C5-6. The remaining disc spaces are preserved. Incidentally noted are pacemaker wires and median sternotomy sutures in the upper chest. There are carotid arterial calcifications Impression: No acute bony trauma Degenerative changes, as described Other findings as noted
[2017-03-24] MEDS ORDERED: Indomethacin 75 MG CAPSULE.ER ORAL SCH ×2 (14:00→22:00)
--- NOTE | 2017-03-24 14:33 | General Progress Note ---
Assessment/Plan Assessment/Plan Renal failure-mainly pre renal (1) Costochondritis (2) ACS (acute coronary syndrome) (3) Pacemaker (4) Poly Substance abuse (5) penitentiary resident (6) HTN Plan: no labs today Hydrate- Watch CHF Sx- Gastric support- Stop NSAIDs or minimize their use Adjust BP med dosage Per orders Subjective ROS Limited/Unobtainable: No Constitutional: Reports: malaise Allergies: Coded Allergies: No Known Allergies (Unverified , 03/22/17) Objective Last 24 Hour Vital Signs Date Time Temp Pulse Resp B/P Pulse Ox O2 Delivery O2 Flow Rate FiO2 03/24/17 14:06 81 169/90 03/24/17 14:05 169/90 03/24/17 12:00 98.2 81 20 169/90 98 Room Air 03/24/17 11:45 96.8 03/24/17 08:10 60 18 Room Air 21 03/24/17 08:00 96.8 60 20 142/80 97 Room Air 03/24/17 06:52 181/75 03/24/17 05:48 73 182/95 03/24/17 05:48 182/95 03/24/17 05:30 98.1 66 18 191/87 99 Room Air 03/24/17 05:30 98.1 66 18 191/87 99 Room Air 03/24/17 04:00 60 03/24/17 00:00 60 03/24/17 00:00 97.9 62 18 151/73 98 Room Air 03/23/17 22:12 154/92 03/23/17 22:11 72 154/92 03/23/17 20:00 61 03/23/17 20:00 97.9 72 18 154/92 97 Room Air 03/23/17 16:00 62 03/23/17 15:36 99.5 64 20 140/68 97 Room Air Intake and Output 03/23/17 03/24/17 19:00 07:00 Intake Total 480 ml 240 ml Output Total 300 ml 300 ml Balance 180 ml -60 ml Intake Oral 480 ml 240 ml Output Urine Total 300 ml 300 ml # Bowel Movements 2 Laboratory Tests 03/24/17 06:10: Troponin I < 0.30 Height (Feet): 5 Height (Inches): 8.00 Weight (Pounds): 127 General Appearance: no apparent distress Objective no change in PE YOHANA OCONNOR Mar 24, 2017 14:33
[2017-03-24 16:00] VITALS: BP 207/103
[2017-03-24] MEDS ORDERED: Miralax 17gm pkt ORAL PRN (17:00)
[2017-03-24] MEDS ORDERED: INDOCIN75 MG ORAL (17:01)
--- NOTE | 2017-03-24 17:04 | Pulmonology Progress Note ---
Assessment/Plan Problems: (1) Costochondritis (2) ACS (acute coronary syndrome) (3) Pacemaker (4) Substance abuse (5) [facility] resident Assessment/Plan all reviewed renal w/u pending check echo cardio consult appreciated monitor bp dvt prophylaxi Renal f/u dc planning Subjective ROS Limited/Unobtainable: No Allergies: Coded Allergies: No Known Allergies (Unverified , 03/22/17) Objective Last 24 Hour Vital Signs Date Time Temp Pulse Resp B/P Pulse Ox O2 Delivery O2 Flow Rate FiO2 03/24/17 16:18 97.2 03/24/17 16:00 97.2 71 20 207/103 96 Room Air 03/24/17 14:06 81 169/90 03/24/17 14:05 169/90 03/24/17 12:00 98.2 81 20 169/90 98 Room Air 03/24/17 08:10 60 18 Room Air 21 03/24/17 08:00 96.8 60 20 142/80 97 Room Air 03/24/17 06:52 181/75 03/24/17 05:48 73 182/95 03/24/17 05:48 182/95 03/24/17 05:30 98.1 66 18 191/87 99 Room Air 03/24/17 05:30 98.1 66 18 191/87 99 Room Air 03/24/17 04:00 60 03/24/17 00:00 60 03/24/17 00:00 97.9 62 18 151/73 98 Room Air 03/23/17 22:12 154/92 03/23/17 22:11 72 154/92 03/23/17 20:00 61 03/23/17 20:00 97.9 72 18 154/92 97 Room Air Intake and Output 03/23/17 03/24/17 19:00 07:00 Intake Total 480 ml 240 ml Output Total 300 ml 300 ml Balance 180 ml -60 ml Intake Oral 480 ml 240 ml Output Urine Total 300 ml 300 ml # Bowel Movements 2 General Appearance: WD/WN HEENT: normocephalic, atraumatic Respiratory/Chest: chest wall non-tender, lungs clear Cardiovascular: normal peripheral pulses, normal rate Abdomen: normal bowel sounds, soft, non tender Extremities: no cyanosis Skin: no lesions 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 Lymphatic: no neck adenopathy, no groin adenopathy Laboratory Tests 03/24/17 06:10: Troponin I < 0.30 Current Medications Medications (Trade) Dose Ordered Sig/Manjeet Route PRN Reason Start Time Stop Time Status Last Admin Dose Admin Acetaminophen (Tylenol) 650 mg Q4H PRN ORAL FEVER 03/24/17 08:00 04/23/17 07:59 Albuterol/ Ipratropium (DuoNeb 0.5-3(2.5)mg/3ml) 3 ml Q4H PRN HHN Shortness of Breath 03/24/17 08:00 03/29/17 07:59 Aspirin (ASA) 162 mg DAILY ORAL 03/24/17 09:00 04/23/17 08:59 03/24/17 09:20 Atorvastatin Calcium (Lipitor) 20 mg BEDTIME ORAL 03/24/17 21:00 04/23/17 20:59 Clonidine HCl (Catapres) 0.2 mg EVERY 8 HOURS ORAL 03/24/17 22:00 04/23/17 21:59 Diltiazem HCl (Cardizem) 60 mg EVERY 8 HOURS ORAL 03/24/17 14:00 04/23/17 13:59 03/24/17 14:06 Gabapentin (Neurontin) 100 mg THREE TIMES A DAY ORAL 03/24/17 09:00 04/23/17 08:59 03/24/17 14:05 Heparin Sodium (Porcine) (Heparin 5000 units/ml) 5,000 units EVERY 12 HOURS SUBQ 03/24/17 09:00 04/23/17 08:59 03/24/17 09:23 Hydralazine HCl (Apresoline) 50 mg Q8HR ORAL 03/24/17 17:00 04/23/17 16:59 UNV Indomethacin (Indocin) 75 mg EVERY 8 HOURS ORAL 03/24/17 22:00 04/23/17 21:59 Lisinopril (Prinivil) 40 mg DAILY ORAL 03/24/17 17:00 04/23/17 16:59 Morphine Sulfate (Morphine Sulfate) 2 mg Q4H PRN IVP severe Pain (Pain Scale 7-10) 03/24/17 10:00 03/31/17 09:59 03/24/17 15:48 Nitroglycerin (Ntg) 0.4 mg Q5M PRN SL Prn Chest Pain 03/24/17 07:15 04/23/17 07:14 Ondansetron HCl (Zofran) 4 mg Q6H PRN IVP Nausea & Vomiting 03/24/17 08:00 04/23/17 07:59 Pantoprazole (Protonix) 40 mg EVERY 12 HOURS ORAL 03/24/17 09:00 04/23/17 08:59 03/24/17 09:19 Polyethylene Glycol (Miralax) 17 gm DAILYPRN PRN ORAL Constipation 03/24/17 17:00 04/23/17 16:59 Temazepam (Restoril) 15 mg HSPRN PRN ORAL Insomnia 03/24/17 17:00 03/31/17 16:59 Triamterene/HCTZ (Dyazide) 1 cap DAILY ORAL 03/24/17 09:00 04/23/17 08:59 03/24/17 09:18 SEKOU HERNANDEZ Mar 24, 2017 17:04
[2017-03-24] MEDS: Lisinopril 20mg tab ORAL SCH (17:35)
[2017-03-24] MEDS: HydrALAZINE 50mg tab ORAL SCH ×2 (17:35→21:52)
[2017-03-24 20:00] VITALS: BP 159/66
[2017-03-24] MEDS ORDERED: Atorvastatin 20mg tab ORAL SCH (21:00)
--- NOTE | 2017-03-24 23:45 | Cardiology Progress Note ---
Assessment/Plan Assessment/Plan 1. Accelerated hypertension, increase cardizem dose, continue Dyazide and clonidine, 2D echocardiography shows hypertensive heart disease with normal LV systolic function. 2. Noncardiac chest pain. The patient has exquisite tenderness over the chest pacemaker, no further cardiac intervention is necessary, hold nonsteroidal anti- inflammatory therapy. 3. Chronic kidney disease, most likely hypertensive, creatinine at 1.5. 4. Polysubstance abuse including marijuana use. Subjective Subjective Transferred to the med-surg unit. No cardiac events. Objective Last 24 Hour Vital Signs Date Time Temp Pulse Resp B/P Pulse Ox O2 Delivery O2 Flow Rate FiO2 03/24/17 21:54 68 164/77 03/24/17 21:52 164/77 03/24/17 21:51 164/77 03/24/17 20:00 100.4 77 19 159/66 100 Room Air 03/24/17 19:53 82 18 Room Air 03/24/17 17:35 207/103 03/24/17 17:35 207/103 03/24/17 16:18 97.2 03/24/17 16:00 97.2 71 20 207/103 96 Room Air 03/24/17 14:06 81 169/90 03/24/17 14:05 169/90 03/24/17 12:00 98.2 81 20 169/90 98 Room Air 03/24/17 08:10 60 18 Room Air 21 03/24/17 08:00 96.8 60 20 142/80 97 Room Air 03/24/17 06:52 181/75 03/24/17 05:48 73 182/95 03/24/17 05:48 182/95 03/24/17 05:30 98.1 66 18 191/87 99 Room Air 03/24/17 05:30 98.1 66 18 191/87 99 Room Air 03/24/17 04:00 60 03/24/17 00:00 60 03/24/17 00:00 97.9 62 18 151/73 98 Room Air Intake and Output 03/23/17 03/24/17 19:00 07:00 Intake Total 480 ml 240 ml Output Total 300 ml 300 ml Balance 180 ml -60 ml Intake Oral 480 ml 240 ml Output Urine Total 300 ml 300 ml # Bowel Movements 2 2D Echo: LVEF 65%, Mod LVH, Mild MR/AR, Grade I LVDD, RVSP 31 mmHg Laboratory Tests Test 03/24/17 06:10 Troponin I < 0.30 ng/mL (<=0.30) Objective HEENT: Atraumatic and normocephalic. Anicteric. Pupils are equal, round, and reactive to light and accommodation. Extraocular muscles intact. NECK: JVP less than 5 centimeter. No carotid bruits. Carotid upstrokes 2+ bilaterally. CARDIOVASCULAR: Normal S1 and S2. Regular rate and rhythm. No murmurs, gallops, or rubs. There is exquisite tenderness over the pacemaker pocket. LUNGS: Clear to auscultation bilaterally. ABDOMEN: Soft, nontender, and nondistended. No hepatosplenomegaly. Positive bowel sounds. EXTREMITIES: No evidence of edema, clubbing, or cyanosis. LUIS SANTOS Mar 24, 2017 23:45
[2017-03-25] VITALS: BP 147/82
[2017-03-25] MEDS: Morphine Sulfate 2mg/ml Inj IVP PRN ×4 (01:47→15:18)
[2017-03-25 04:00] VITALS: BP 149/70
[2017-03-25] MEDS: HydrALAZINE 50mg tab ORAL SCH ×2 (05:32→14:33)
[2017-03-25 07:42] LABS: BASOPHILS % (AUTO) 0.8 % (0.0-2.0); EOSINOPHILS % (AUTO) 3.6 % (0.0-3.0); LYMPHOCYTES % (AUTO) 35.7 % (20.0-45.0); MEAN CORPUSCULAR HGB CONC 33.6 G/DL (32.0-36.0); MEAN CORPUSCULAR VOLUME 89 FL (80-99); MEAN PLATELET VOLUME 9.1 FL (6.5-10.1); MONOCYTES % (AUTO) 8.6 % (1.0-10.0); NEUTROPHILS % (AUTO) 51.3 % (45.0-75.0); PLATELET COUNT 222 K/UL (150-450); RED BLOOD COUNT 4.37 M/UL (4.70-6.10); RED CELL DISTRIBUTION WIDTH 12.1 % (11.6-14.8); WHITE BLOOD COUNT 6.4 K/UL (4.8-10.8)
[2017-03-25 07:53] LABS: ALANINE AMINOTRANSFERASE 9 U/L (3-41); ALBUMIN/GLOBULIN RATIO 1.1 (1.0-2.7); ANION GAP 18 (5-15); ASPARTATE AMINO TRANSFERASE 18 U/L (5-40); CALCIUM 8.9 mg/dL (8.6-10.2); CARBON DIOXIDE 20 mEQ/L (20-30); CHLORIDE 103 mEQ/L (98-107); CREATININE 1.6 mg/dL (0.7-1.2); CRP QUANT < 0.3 mg/dL (< 0.5); HEMOLYSIS 12; PHOSPHORUS 3.9 mg/dL (2.5-4.8); POTASSIUM 4.4 mEQ/L (3.4-4.9); SODIUM 141 mEQ/L (135-145); URIC ACID 7.7 mg/dL (3.0-7.5)
[2017-03-25 08:00] VITALS: BP 134/67
[2017-03-25] MEDS: Aspirin Baby 81mg ORAL SCH (09:15)
[2017-03-25] MEDS: Triamterene/Hctz 37.5/25 cap ORAL SCH (09:15)
[2017-03-25] MEDS: Lisinopril 20mg tab ORAL SCH (09:15)
[2017-03-25] MEDS: Heparin 5000 units/ml inj SUBQ SCH (09:20)
[2017-03-25 09:57] LABS: CORTISOL LC 16.2 ug/dL (.); FREE TRIIODOTHYRONINE 2.7 pg/mL (2.0-4.4)
--- NOTE | 2017-03-25 11:31 | General Progress Note ---
Assessment/Plan Status: stable Status Narrative Cr 1.6 Assessment/Plan Renal failure- likely CKD + pre renal (1) Costochondritis (2) ACS (acute coronary syndrome) (3) Pacemaker (4) Poly Substance abuse (5) half-way resident (6) HTN Plan: Hydrate- Watch CHF Sx- Gastric support- Stop NSAIDs or minimize their use Adjust BP med dosage Per orders stable for DC from renal stand point Subjective ROS Limited/Unobtainable: No Constitutional: Reports: malaise Allergies: Coded Allergies: No Known Allergies (Unverified , 03/22/17) Objective Last 24 Hour Vital Signs Date Time Temp Pulse Resp B/P Pulse Ox O2 Delivery O2 Flow Rate FiO2 03/25/17 09:15 134/67 03/25/17 08:00 96.8 68 20 134/67 98 Room Air 03/25/17 05:33 160/104 03/25/17 05:32 88 160/104 03/25/17 05:32 160/104 03/25/17 04:00 98.2 67 20 149/70 98 Room Air 03/25/17 00:00 98.9 67 18 147/82 97 Room Air 03/24/17 21:54 68 164/77 03/24/17 21:52 164/77 03/24/17 21:51 164/77 03/24/17 20:00 100.4 77 19 159/66 100 Room Air 03/24/17 19:53 82 18 Room Air 03/24/17 17:35 207/103 03/24/17 17:35 207/103 03/24/17 16:18 97.2 03/24/17 16:00 97.2 71 20 207/103 96 Room Air 03/24/17 14:06 81 169/90 03/24/17 14:05 169/90 03/24/17 12:00 98.2 81 20 169/90 98 Room Air Intake and Output 03/24/17 03/25/17 19:00 07:00 Intake Total 400 ml 240 ml Balance 400 ml 240 ml Intake Oral 400 ml 240 ml # Voids 4 1 # Bowel Movements 1 1 Laboratory Tests 03/25/17 04:40: White Blood Count 6.4, Red Blood Count 4.37L, Hemoglobin 13.1L, Hematocrit 39.1L , Mean Corpuscular Volume 89, Mean Corpuscular Hemoglobin 30.0, Mean Corpuscular Hemoglobin Concent 33.6, Red Cell Distribution Width 12.1, Platelet Count 222, Mean Platelet Volume 9.1, Neutrophils (%) (Auto) 51.3, Lymphocytes (% ) (Auto) 35.7, Monocytes (%) (Auto) 8.6, Eosinophils (%) (Auto) 3.6H, Basophils (%) (Auto) 0.8, Sodium Level 141, Potassium Level 4.4, Chloride Level 103, Carbon Dioxide Level 20, Anion Gap 18H, Blood Urea Nitrogen 36H, Creatinine 1.6H , Estimat Glomerular Filtration Rate , Glucose Level 95, Uric Acid 7.7H, Calcium Level 8.9, Phosphorus Level 3.9, Magnesium Level 2.0, Total Bilirubin 0.4, Aspartate Amino Transf (AST/SGOT) 18, Alanine Aminotransferase (ALT/SGPT) 9 , Alkaline Phosphatase 84, C-Reactive Protein, Quantitative < 0.3, Pro-B-Type Natriuretic Peptide 249, Total Protein 7.0, Albumin 3.8, Globulin 3.2, Albumin/ Globulin Ratio 1.1 Height (Feet): 5 Height (Inches): 8.00 Weight (Pounds): 127 General Appearance: no apparent distress Objective no change in PE YOHANA OCONNOR Mar 25, 2017 11:31
[2017-03-25 12:00] VITALS: BP 145/75
--- NOTE | 2017-03-25 13:48 | Diagnostic Imaging Report ---
APPROVED REPORT CPT Code: 45110 Present Symptoms Comments: Pain LEFT UPPER EXTREMITY: Venous imaging reveals patency of the internal jugular, subclavian, axillary and brachial veins. The cephalic and basilic veins are also patent. Doppler indicates normal spontaneous flow within these venous segments.
[2017-03-25 14:31] VITALS: BP 154/83
[2017-03-25 15:22] VITALS: BP 136/76
--- NOTE | 2017-03-25 18:29 | Pulmonology Progress Note ---
Assessment/Plan Problems: (1) Costochondritis (2) ACS (acute coronary syndrome) (3) Pacemaker (4) Substance abuse (5) penitentiary resident Assessment/Plan all reviewed renal w/u pending check echo cardio consult appreciated monitor bp dvt prophylaxi Renal f/u dc planning Subjective Allergies: Coded Allergies: No Known Allergies (Unverified , 03/22/17) Objective Last 24 Hour Vital Signs Date Time Temp Pulse Resp B/P Pulse Ox O2 Delivery O2 Flow Rate FiO2 03/25/17 15:22 136/76 03/25/17 14:34 63 154/83 03/25/17 14:34 154/83 03/25/17 14:33 154/83 03/25/17 14:31 154/83 03/25/17 12:00 97.2 63 20 145/75 97 Room Air 03/25/17 09:15 134/67 03/25/17 08:00 96.8 68 20 134/67 98 Room Air 03/25/17 05:33 160/104 03/25/17 05:32 88 160/104 03/25/17 05:32 160/104 03/25/17 04:00 98.2 67 20 149/70 98 Room Air 03/25/17 00:00 98.9 67 18 147/82 97 Room Air 03/24/17 21:54 68 164/77 03/24/17 21:52 164/77 03/24/17 21:51 164/77 03/24/17 20:00 100.4 77 19 159/66 100 Room Air 03/24/17 19:53 82 18 Room Air Intake and Output 03/24/17 03/25/17 19:00 07:00 Intake Total 400 ml 240 ml Balance 400 ml 240 ml Intake Oral 400 ml 240 ml # Voids 4 1 # Bowel Movements 1 1 Laboratory Tests 03/25/17 04:40: White Blood Count 6.4, Red Blood Count 4.37L, Hemoglobin 13.1L, Hematocrit 39.1L , Mean Corpuscular Volume 89, Mean Corpuscular Hemoglobin 30.0, Mean Corpuscular Hemoglobin Concent 33.6, Red Cell Distribution Width 12.1, Platelet Count 222, Mean Platelet Volume 9.1, Neutrophils (%) (Auto) 51.3, Lymphocytes (% ) (Auto) 35.7, Monocytes (%) (Auto) 8.6, Eosinophils (%) (Auto) 3.6H, Basophils (%) (Auto) 0.8, Sodium Level 141, Potassium Level 4.4, Chloride Level 103, Carbon Dioxide Level 20, Anion Gap 18H, Blood Urea Nitrogen 36H, Creatinine 1.6H , Estimat Glomerular Filtration Rate , Glucose Level 95, Uric Acid 7.7H, Calcium Level 8.9, Phosphorus Level 3.9, Magnesium Level 2.0, Total Bilirubin 0.4, Aspartate Amino Transf (AST/SGOT) 18, Alanine Aminotransferase (ALT/SGPT) 9 , Alkaline Phosphatase 84, C-Reactive Protein, Quantitative < 0.3, Pro-B-Type Natriuretic Peptide 249, Total Protein 7.0, Albumin 3.8, Globulin 3.2, Albumin/ Globulin Ratio 1.1 SEKOU HERNANDEZ Mar 25, 2017 18:29
--- NOTE | 2017-03-25 23:46 | Cardiology Progress Note ---
Assessment/Plan Assessment/Plan 1. Accelerated hypertension, continue cardizem, Dyazide and clonidine, 2D echocardiography shows hypertensive heart disease with normal LV systolic function. 2. Noncardiac chest pain. The patient has exquisite tenderness over the chest pacemaker, no further cardiac intervention is necessary. 3. Chronic kidney disease, most likely hypertensive, creatinine up to 1.6. Subjective Subjective Not on the telemetry unit. No cardiac events. Objective Last 24 Hour Vital Signs Date Time Temp Pulse Resp B/P Pulse Ox O2 Delivery O2 Flow Rate FiO2 03/25/17 15:22 136/76 03/25/17 14:34 63 154/83 03/25/17 14:34 154/83 03/25/17 14:33 154/83 03/25/17 14:31 154/83 03/25/17 12:00 97.2 63 20 145/75 97 Room Air 03/25/17 09:15 134/67 03/25/17 08:00 96.8 68 20 134/67 98 Room Air 03/25/17 05:33 160/104 03/25/17 05:32 88 160/104 03/25/17 05:32 160/104 03/25/17 04:00 98.2 67 20 149/70 98 Room Air 03/25/17 00:00 98.9 67 18 147/82 97 Room Air Intake and Output 03/24/17 03/25/17 19:00 07:00 Intake Total 400 ml 240 ml Balance 400 ml 240 ml Intake Oral 400 ml 240 ml # Voids 4 1 # Bowel Movements 1 1 2D Echo: LVEF 65%, Mod LVH, Mild MR/AR, Grade I LVDD, RVSP 31 mmHg Laboratory Tests Test 03/25/17 04:40 White Blood Count 6.4 K/UL (4.8-10.8) Red Blood Count 4.37 M/UL (4.70-6.10) L Hemoglobin 13.1 G/DL (14.2-18.0) L Hematocrit 39.1 % (42.0-52.0) L Mean Corpuscular Volume 89 FL (80-99) Mean Corpuscular Hemoglobin 30.0 PG (27.0-31.0) Mean Corpuscular Hemoglobin Concent 33.6 G/DL (32.0-36.0) Red Cell Distribution Width 12.1 % (11.6-14.8) Platelet Count 222 K/UL (150-450) Mean Platelet Volume 9.1 FL (6.5-10.1) Neutrophils (%) (Auto) 51.3 % (45.0-75.0) Lymphocytes (%) (Auto) 35.7 % (20.0-45.0) Monocytes (%) (Auto) 8.6 % (1.0-10.0) Eosinophils (%) (Auto) 3.6 % (0.0-3.0) H Basophils (%) (Auto) 0.8 % (0.0-2.0) Sodium Level 141 mEQ/L (135-145) Potassium Level 4.4 mEQ/L (3.4-4.9) Chloride Level 103 mEQ/L (98-107) Carbon Dioxide Level 20 mEQ/L (20-30) Anion Gap 18 (5-15) H Blood Urea Nitrogen 36 mg/dL (7-23) H Creatinine 1.6 mg/dL (0.7-1.2) H Estimat Glomerular Filtration Rate mL/min (>60) Glucose Level 95 mg/dL (74-106) Uric Acid 7.7 mg/dL (3.0-7.5) H Calcium Level 8.9 mg/dL (8.6-10.2) Phosphorus Level 3.9 mg/dL (2.5-4.8) Magnesium Level 2.0 mg/dL (1.7-2.5) Total Bilirubin 0.4 mg/dL (0.0-1.2) Aspartate Amino Transf (AST/SGOT) 18 U/L (5-40) Alanine Aminotransferase (ALT/SGPT) 9 U/L (3-41) Alkaline Phosphatase 84 U/L (40-129) C-Reactive Protein, Quantitative < 0.3 mg/dL (< 0.5) Pro-B-Type Natriuretic Peptide 249 pg/mL (0-450) Total Protein 7.0 g/dL (6.6-8.7) Albumin 3.8 g/dL (3.5-5.2) Globulin 3.2 g/dL Albumin/Globulin Ratio 1.1 (1.0-2.7) Objective HEENT: Atraumatic and normocephalic. Anicteric. Pupils are equal, round, and reactive to light and accommodation. Extraocular muscles intact. NECK: JVP less than 5 centimeter. No carotid bruits. Carotid upstrokes 2+ bilaterally. CARDIOVASCULAR: Normal S1 and S2. Regular rate and rhythm. No murmurs, gallops, or rubs. There is exquisite tenderness over the pacemaker pocket. LUNGS: Clear to auscultation bilaterally. ABDOMEN: Soft, nontender, and nondistended. No hepatosplenomegaly. Positive bowel sounds. EXTREMITIES: No evidence of edema, clubbing, or cyanosis. LUIS SANTOS Mar 25, 2017 23:46
--- NOTE | 2017-03-26 09:53 | Discharge Summary ---
Discharge Summary Hospital Course Date of Admission Mar 22, 2017 at 12:49 Date of Discharge Mar 25, 2017 at 17:37 Admitting Diagnosis ACS HPI Delfino Barrett is a 76 year old male who was admitted on Mar 22, 2017 at 12: 49 for Acute Coronary Syndrome Hospital Course [id number] Discharge Discharge Disposition Patient was discharged to SNF/Subacute Facility(03) Discharge Diagnoses: Yanely Ayala NP Mar 26, 2017 09:53
--- NOTE | 2017-03-27 00:30 | Discharge Summary 2 SIG ---
DATE OF ADMISSION: 03/22/2017 DATE OF DISCHARGE: 03/25/2017 CONSULTANTS: 1. Deshawn Arshad M.D. 2. Tru Carter M.D. 3. Stephen Vasquez M.D. 4. Do Martinez M.D. BRIEF HOSPITAL COURSE: The patient is a 76-year-old male with coronary artery disease, pacemaker, and [facility] resident, presented to ED complaining of chest pain that started two hours prior to admission. He was given nitroglycerin and aspirin without relief. On evaluation at ED, laboratories showed no leukocytosis. Troponin was negative. EKG showed left ventricular hypertrophy with T-wave inversion in the lateral leads. Urine toxicology was positive for multiple substances including opiates, barbiturates, and marijuana. Chest x-ray showed a pacemaker and evidence of previous open heart surgery. On arrival to ED, blood pressure was elevated to 200 systolic. He had a history of sick sinus syndrome, status post permanent dual chamber pacemaker placement. Chest pain appeared musculoskeletal in origin. Pacemaker site was negative for induration, erythema, or edema over the pocket size. He had an echocardiogram done that showed ejection fraction of 65% and venous duplex of the left upper extremity revealed patent internal jugular, subclavian, axillary, and radial veins. Cephalic and basilic veins were also negative. There was normal spontaneous flow within the venous segment. He was recommended nonsteroidal anti-inflammatory for pain management. Neurologic evaluation was done. The patient stated that five days prior to admission, he was walking to the bathroom, had loss of consciousness, fell down, and upon waking, felt acute pain over the left chest pacemaker area, symptoms suggesting crush injury to the left brachial plexus. He had cervical x-ray done, which showed no acute bony trauma with degenerative changes. He was given Neurontin t.i.d. Creatinine was elevated. The patient has acute renal failure mainly prerenal on top of CKD and was given IV hydratio. Kidney ultrasound done was negative for hydronephrosis and showed increased renal echogenicity suggestive of medical renal disease. He underwent physical therapy and occupational therapy and was eventually discharged to a [facility] facility. FINAL DIAGNOSES: 1. Costochondritis. 2. Accelerated hypertension. 3. Acute on chronic renal failure likely secondary to chronic kidney disease and prerenal. 4. Acute coronary syndrome. 5. Polysubstance abuse. 6. long term resident. Radha Salinas M.D. I have been assigned to dictate discharge summary on this account and I was not involved in the patient's management. Yanely Ayala N.P. DR: MASON JOB#: [id number] CC: GILBERT
== END 2017-03-25 17:37 | DRG 203 ==
LOC: EDBD 11:28 → EMR 12:00 → 2E 12:49 → EDBEDREQ 18:29 → 4E 03-24 07:01
DX: M94.0 Chondrocostal junction syndrome [Tietze] (principal); N17.9 Acute kidney failure, unspecified; F11.20 Opioid dependence, uncomplicated; S14.3XXA Injury of brachial plexus, initial encounter; F12.10 Cannabis abuse, uncomplicated; G89.4 Chronic pain syndrome; I12.9 Hypertensive chronic kidney disease with stage 1 through stage 4 chronic kidney disease, or unspecified chronic kidney disease; I25.110 Atherosclerotic heart disease of native coronary artery with unstable angina pectoris; N18.9 Chronic kidney disease, unspecified; Z79.82 Long term (current) use of aspirin; Z95.0 Presence of cardiac pacemaker; W19.XXXA Unspecified fall, initial encounter; Y92.89 Other specified places as the place of occurrence of the external cause
CPT/HCPCS: 36415; 71010; 72040; 76775; 80053; 80061; 80300; 81001; 82436; 82533; 82550; 82553; 83735; 83880; 83930; 83935; 84100; 84133; 84300; 84439; 84443; 84481; 84484; 84550; 85025; 85610; 85730; 86140; 87081; 89050; 93005; 93306; 93971; 94664

== ENCOUNTER 2017-04-08 17:38 | Emergency (ER) | payer MEDICARE, MEDICAID ==
[~2017-04-08] VITALS: Ht 172.7 cm; Wt 59.0 kg
[~2017-04-08 17:38] MED LIST: ACETAMINOPHEN325 M1 ORAL; ASPIRIN81 M3 PO; ASPIRIN81 MG ORAL; ATORVASTATIN CA20 MG ORAL; Acetaminophen PO; CLONIDINE HCL0.1 MG PO; CLONIDINE0.1 MG GT; DILTIAZEM HCL30 MG PO; DIOVAN HCT 80MG1 TAB ORAL; DIOVAN80 MG ORAL; DOCUSATE SODIU250 MG ORAL; Diltiazem Hcl PO; HYDRALAZINE HC100 MG ORAL; INDOCIN75 MG ORAL; NORCO 5-325 TA1 EAC1 ORAL; NORCO 5-325 TA1 EACH ORAL; VITAMIN D250000 UNI1 ORAL; ZOLPIDEM TARTRAT5 MG ORAL
[2017-04-08 17:49] VITALS: BP 160/80
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
[2017-04-08 18:09] VITALS: BP 157/73
[2017-04-08 19:30] VITALS: BP 156/71
[2017-04-08 23:07] VITALS: BP 147/79
== END 2017-04-08 23:07 | disposition home or self-care (01) ==
LOC: EDBD 17:38 → EMR 17:55
DX: R07.89 Other chest pain (principal); G89.29 Other chronic pain; Z95.0 Presence of cardiac pacemaker; F17.200 Nicotine dependence, unspecified, uncomplicated; I10 Essential (primary) hypertension; R45.1 Restlessness and agitation
CPT/HCPCS: 99283